=== PATIENT | female | born 1945 | race Caucasian/White ===

== ENCOUNTER 2023-07-18 08:45 | Inpatient (IN) ==
[2023-09-12] MEDS ORDERED: Lactated Ringers 1000 ml BAG 1,000 ML IV SCH ×2 (06:00→14:00)
[2023-09-12] MEDS ORDERED: Buffered Lidocaine 1% SYRIN 1 ml INTRADERM ONE (06:00)
[2023-09-12] MEDS ORDERED: Famotidine IV 10 MG/ML 2 ml VIAL (20 mg) IV ONE (06:00)
[2023-09-12] MEDS ORDERED: Tranexamic Acid 1 GM/100ML BAG 2,000 MG/200 ML BAG IV ONE (10:09)
[2023-09-12] MEDS ORDERED: Dexamethasone IV 4 MG/ML VIAL 1 ml VIAL ONE (10:11)
[2023-09-12] MEDS ORDERED: Acetaminophen IV 1 GM/100ML 1,000 MG/100 ML BAG IV ONE (10:11)
[2023-09-12] MEDS ORDERED: fentaNYL 100 mcg/2 ml 50 MCG/ML VIAL ONE ×2 (10:11→12:12)
[2023-09-12] MEDS ORDERED: Lidocaine 2% PF 5 ML VIAL ONE (10:11)
[2023-09-12] MEDS ORDERED: Propofol 10 MG/ML 20 ML BTL ONE (10:11)
[2023-09-12] MEDS ORDERED: Ondansetron 4 mg VIAL 2 MG/ML 2 ml VIAL ONE (10:11)
[2023-09-12] MEDS ORDERED: Midazolam 2 mg/2 ml VIAL 1 mg/ml 2 ml VIAL (2 mg) ONE ×2 (10:12→12:12)
[2023-09-12] MEDS ORDERED: Famotidine IV 10 MG/ML 2 ml VIAL (20 mg) ONE (10:18)
[2023-09-12] MEDS ORDERED: ceFAZolin 2 GM in NS PREMIX 2 GM/100 ML BAG IVPB ONE (10:18)
[2023-09-12 11:03] LABS: Rapid COVID-19 Molecular Undetected (Undetected)
[2023-09-12] MEDS ORDERED: ROPIVACAINE 5 MG/ML 30 ML BTL (0.5%) ONE ×2 (11:48→12:12)
[2023-09-12] MEDS ORDERED: Sterile Water for Inj 10 ML ONE (13:32)
[2023-09-12] MEDS ORDERED: Lactulose 30 ml UDC PO PRN (13:54)
[2023-09-12] MEDS ORDERED: Ondansetron ODT 4 mg TAB 4 MG TAB PO PRN (13:54)
[2023-09-12] MEDS ORDERED: Magnesium Hydroxide LIQ 30 ML UDC PO PRN (13:54)
[2023-09-12] MEDS ORDERED: Ondansetron 4 mg VIAL 2 MG/ML 2 ml VIAL IV PRN ×2 (13:54→14:16)
[2023-09-12] MEDS ORDERED: Morphine 2 MG/ML SYRINGE IV PRN (13:54)
[2023-09-12] MEDS ORDERED: fentaNYL 100 mcg/2 ml 50 MCG/ML VIAL IV PRN (14:16)
[2023-09-12] MEDS ORDERED: Naloxone 0.4 mg VIAL 0.4 mg/ml 1 ml VIAL IV PRN (14:16)
[2023-09-12] MEDS: Magnesium Hydroxide LIQ 30 ML UDC PO SCH (20:01)
[2023-09-12] MEDS: ceFAZolin 1 GM ADVAN 1 GM in NS 0.9% 50 ML 50 ML IVPB SCH (22:21)
[2023-09-13] MEDS: ceFAZolin 1 GM ADVAN 1 GM in NS 0.9% 50 ML 50 ML IVPB SCH ×2 (05:40→13:21)
[2023-09-13 06:10] LABS: Hematocrit 35.7 % (35-45); Hemoglobin 11.8 g/dL (11.5-14.3); Mean Platelet Volume 8.2 fL (7.5-11.2); Platelet Count 338 10^3/uL (150-450)
[2023-09-13 06:39] LABS: Creatinine, Serum 0.77 mg/dL (0.51-0.95); Potassium 5.2 mmol/L (3.5-5.0); eGFR CKD-EPI 79.4 (>60)
[2023-09-13] MEDS: Magnesium Hydroxide LIQ 30 ML UDC PO SCH (08:27)
[2023-09-13] MEDS ORDERED: Vitamin THERAPEUTIC TAB PO SCH (09:00)
[2023-09-13] MEDS ORDERED: Cholecalciferol (VIT D3) 1,000 unit TAB PO SCH (09:00)
[2023-09-13 10:38] VITALS: BP 116/82
== END 2023-09-13 13:57 | disposition home or self-care (01) | DRG 470 ==
LOC: INTOOBSV 09-12 10:03 → AA 09-12 10:03 → SSU 09-12 17:45
PROVIDERS: ADMIT Orthopaedic Surgery Adult Reconstructive Orthopaedic Surgery; ATTEND Orthopaedic Surgery Adult Reconstructive Orthopaedic Surgery